=== PATIENT | female | born 1935 | race Two or more races ===

== ENCOUNTER 2018-07-26 14:47 | Outpatient (CLI) | payer OTHER ==
[~2018-07-26 14:47] MED LIST: LEVAQUIN750 MG PO; NABUMETONE500 MG PO; PERCOCET 5/3251 TAB PO
== END 2018-07-26 15:07 | disposition home or self-care (01) ==
LOC: RAD 14:47
DX: S92.902A Unspecified fracture of left foot, initial encounter for closed fracture (principal)

== ENCOUNTER 2021-04-21 08:08 | Outpatient (CLI) | payer OTHER ==
[~2021-04-21 08:08] MED LIST changes: +CARVEDILOL6.25 M1 PO; +IRBESARTAN300 MG PO; +LASIX20 MG PO; +ZOLPIDEM TARTRAT5 MG
== END 2021-04-21 08:10 | disposition home or self-care (01) ==
LOC: PPH VACUNA 08:08
PROVIDERS: ATTEND Emergency Medicine Pediatric Emergency Medicine
DX: Z23 Encounter for immunization (principal)

== ENCOUNTER 2021-11-11 08:00 | Outpatient (CLI) | payer OTHER | END 2021-11-11 08:30 | disposition home or self-care (01) | LOC: PPH VACUNA 08:00 | PROVIDERS: ATTEND Emergency Medicine Pediatric Emergency Medicine | DX: Z23 Encounter for immunization (principal) ==

== ENCOUNTER 2022-07-21 14:00 | Outpatient (CLI) | payer OTHER | END 2022-07-21 14:10 | disposition home or self-care (01) | LOC: PPH VACUNA 14:00 | PROVIDERS: ATTEND Emergency Medicine Pediatric Emergency Medicine | DX: Z23 Encounter for immunization (principal) ==

== ENCOUNTER 2023-07-21 09:57 | Inpatient (IN) | payer OTHER ==
[~2023-07-21] VITALS: Ht 154.9 cm; Wt 54.4 kg
[2023-07-21 12:36] LABS: MEAN CELL VOLUME 79.4 fL (80.00-100.00); MEAN CORPUSCULAR HGB CONC 31.8 g/dl (32.0-36.0); PLATELET COUNT 468 K/uL (150-450); RED BLOOD COUNT 2.87 M/uL (4.00-6.00); RED CELL DISTRIBUTION WIDTH 17.2 % (11.5-14.5)
[2023-07-21 12:38] LABS: HEMATOCRIT 22.8 % (36.0-45.00); MEAN CORPUSCULAR HEMOGLOBIN 25.4 pg (27.00-32.0)
[2023-07-21 12:39] LABS: HEMOGLOBIN 7.3 g/dL (12.0-15.00)
[2023-07-21 12:48] LABS: CALCIUM 8.8 mg/dL (8.5-10.1); CREATININE SERUM 0.66 mg/dL (0.55-1.02); GFR 84.32; POTASSIUM 4.56 mEq/L (3.5-5.1)
[2023-07-21 13:44] LABS: INR 1.07; PROTHROMBIN TIME 11.2 SECONDS (9.0-11.5)
[2023-07-21 14:31] LABS: PARTIAL THROMBOPLASTIN TIME < 20.0 SECONDS (22.0-34.0)
[2023-07-22 19:57] LABS: HEMATOCRIT 31.4 % (36.0-45.00); MEAN CELL VOLUME 81.9 fL (80.00-100.00); MEAN CORPUSCULAR HEMOGLOBIN 27.1 pg (27.00-32.0); MEAN CORPUSCULAR HGB CONC 33.1 g/dl (32.0-36.0); RED BLOOD COUNT 3.83 M/uL (4.00-6.00); RED CELL DISTRIBUTION WIDTH 17.1 % (11.5-14.5)
[2023-07-22 20:23] LABS: HEMOGLOBIN 10.4 g/dL (12.0-15.00); PLATELET COUNT 421 K/uL (150-450)
[2023-07-22 22:20] LABS: ALBUMIN 2.3 gm/dL (3.4-5.0); BILIRUBIN TOTAL 1.52 mg/dL (0.3-1.2); BILIRUBIN,CONJUGATED 0.63 mg/dL (0.0-0.2); BILIRUBIN,UNCONJUGATED 0.89 mg/dL (0.0-0.6); CHOL HDL RATIO 6.1 (0-5.0); TOTAL PROTEIN 6.2 gm/dL (6.4-8.2); TSH 3.57 uIU/mL (0.358-3.74)
[2023-07-22 22:29] LABS: CALCIUM 8.2 mg/dL (8.5-10.1); CHOL HDL RATIO 6.4 (0-5.0); CREATININE SERUM 0.55 mg/dL (0.55-1.02); GFR 104.07; POTASSIUM 4.45 mEq/L (3.5-5.1)
[2023-07-23 07:20] LABS: PH,URINE 6.5 (5.0-8.0); URINE APPEARANCE Clear; URINE BILIRRUBIN Negative (NEGATIVE); URINE BLOOD NHT; URINE COLOR Yellow; URINE GLUCOSE Negative (NEGATIVE); URINE LEUKOCYTE Moderate; URINE NITRATE Negative; URINE PROTEIN Negative (NEGATIVE)
[2023-07-23 07:23] LABS: URINE BACTERIA 85.6 uL (0.0-1933); URINE EPITHELIAL CELLS 14.9 uL (0.0-38.8); URINE RBC 24.4 uL (0.0-20.8); URINE WBC 297.5 uL (0.0-23.2)
[2023-07-23 14:53] LABS: CORTISOL 15.14 ug/dl
[2023-07-24 12:33] LABS: ob POSITIVE (NEGATIVE)
[2023-07-25 12:00] LABS: HEMOGLOBIN 9.1 g/dL (12.0-15.00); MEAN CELL VOLUME 83.7 fL (80.00-100.00); MEAN CORPUSCULAR HEMOGLOBIN 26.3 pg (27.00-32.0); MEAN CORPUSCULAR HGB CONC 31.5 g/dl (32.0-36.0); RED BLOOD COUNT 3.47 M/uL (4.00-6.00); RED CELL DISTRIBUTION WIDTH 17.6 % (11.5-14.5)
[2023-07-25 12:38] LABS: BILIRUBIN TOTAL 0.71 mg/dL (0.3-1.2); CALCIUM 8.2 mg/dL (8.5-10.1); CREATININE SERUM 0.47 mg/dL (0.55-1.02); GFR 124.77; PLATELET COUNT 313 K/uL (150-450); POTASSIUM 4.63 mEq/L (3.5-5.1)
[2023-07-25 12:40] LABS: ALBUMIN 2.2 gm/dL (3.4-5.0); GLOBULINA 3.8 G/DL (2.4-3.5)
[2023-07-26] MEDS ORDERED: CLONAZEPAM0.5 MG PO (08:21)
[2023-07-26] MEDS ORDERED: DIPHENHYDR50 MG/1 M1 IV (08:21)
[2023-07-26] MEDS ORDERED: CARVEDILOL3.125 MG PO (08:21)
[2023-07-26] MEDS ORDERED: LASIX20 MG PO (08:22)
[2023-07-26] MEDS ORDERED: Neurin-Sl Tablet Sl SL (08:23)
[2023-07-26] MEDS ORDERED: ZOLPIDEM TARTRAT5 MG PO (08:23)
[2023-07-26] MEDS ORDERED: AMOX-CLAV 875-1 EAC1 PO (08:24)
[2023-07-26 14:33] LABS: ABG PH 7.444 (7.35-7.45); ABG PO2 81.5 mmHg (80-100); ABG pCO2 34.6 mmHg (35-45); BASE EXCESS -0.3 mmol/l; BICARBONATE 23.2 mmol/l (23-25); SaO2 96.4 %; Tco2 24.3 mmol/l
[2023-07-26 14:34] LABS: allen test SATISFACTORY; o2 21 %; puncture site RADIAL RIGHT
[2023-07-26 23:33] LABS: ERYTHROCYTE SEDIMENTATION RATE 126 mm/hr
[2023-07-26 23:40] LABS: HEMATOCRIT 24.3 % (36.0-45.00); MEAN CELL VOLUME 83.6 fL (80.00-100.00); MEAN CORPUSCULAR HGB CONC 32.1 g/dl (32.0-36.0); PLATELET COUNT 259 K/uL (150-450); RED BLOOD COUNT 2.91 M/uL (4.00-6.00); RED CELL DISTRIBUTION WIDTH 18.4 % (11.5-14.5)
[2023-07-26 23:42] LABS: MEAN CORPUSCULAR HEMOGLOBIN 26.8 pg (27.00-32.0)
[2023-07-26 23:47] LABS: HEMOGLOBIN 7.8 g/dL (12.0-15.00)
[2023-07-27 00:09] LABS: ALBUMIN 1.8 gm/dL (3.4-5.0); BILIRUBIN TOTAL 0.37 mg/dL (0.3-1.2); CALCIUM 7.7 mg/dL (8.5-10.1); CREATININE SERUM 0.43 mg/dL (0.55-1.02); GFR 138.26; GLOBULINA 3.5 G/DL (2.4-3.5); POTASSIUM 4.4 mEq/L (3.5-5.1); TOTAL PROTEIN 5.3 gm/dL (6.4-8.2)
[2023-07-27 00:10] LABS: C-REACTIVE PROTEIN 7.18 MG/DL (0.00-0.29); FERRITIN 865.4 NG/ML (8-252)
[2023-07-29 23:48] LABS: HEMOGLOBIN 11.7 g/dL (12.0-15.00); MEAN CELL VOLUME 84.2 fL (80.00-100.00); MEAN CORPUSCULAR HEMOGLOBIN 27.5 pg (27.00-32.0); MEAN CORPUSCULAR HGB CONC 32.6 g/dl (32.0-36.0); PLATELET COUNT 139 K/uL (150-450); RED BLOOD COUNT 4.27 M/uL (4.00-6.00); RED CELL DISTRIBUTION WIDTH 18.2 % (11.5-14.5)
[2023-07-30 07:08] LABS: HEMATOCRIT 31.1 % (36.0-45.00); HEMOGLOBIN 10.4 g/dL (12.0-15.00); MEAN CELL VOLUME 83.6 fL (80.00-100.00); MEAN CORPUSCULAR HGB CONC 33.5 g/dl (32.0-36.0); PLATELET COUNT 262 K/uL (150-450); RED BLOOD COUNT 3.72 M/uL (4.00-6.00); RED CELL DISTRIBUTION WIDTH 17.8 % (11.5-14.5)
[2023-07-30 07:24] LABS: ALBUMIN 1.7 gm/dL (3.4-5.0); BILIRUBIN TOTAL 0.65 mg/dL (0.3-1.2); BILIRUBIN,CONJUGATED 0.36 mg/dL (0.0-0.2); BILIRUBIN,UNCONJUGATED 0.29 mg/dL (0.0-0.6); CALCIUM 7.6 mg/dL (8.5-10.1); CHOL HDL RATIO 5.8 (0-5.0); GFR 226.83; GLOBULINA 3.5 G/DL (2.4-3.5); MAGNESIUM 1.8 mg/dL (1.8-2.4); POTASSIUM 4.32 mEq/L (3.5-5.1); TOTAL PROTEIN 5.2 gm/dL (6.4-8.2)
[2023-07-30 07:41] LABS: CREATININE SERUM 0.28 mg/dL (0.55-1.02)
[2023-07-30 13:29] LABS: UREA CLEARANCE 44.6 ML/MIN
== END 2023-07-31 16:06 | disposition home or self-care (01) | DRG 378 ==
LOC: ER 09:57 → MEDI 18:50 → MEDJ 07-26 16:36
PROVIDERS: General Practice; Internal Medicine Infectious Disease; ADMIT Internal Medicine; ATTEND Internal Medicine
PROC: BW21YZZ Computerized Tomography (CT Scan) of Abdomen and Pelvis using Other Contrast (ICD-10-PCS; 2023-07-21)
PROC: BB24ZZZ Computerized Tomography (CT Scan) of Bilateral Lungs (ICD-10-PCS; principal; 2023-07-22)
PROC: 4A12X4Z Monitoring of Cardiac Electrical Activity, External Approach (ICD-10-PCS; 2023-07-22)
PROC: 30233N1 Transfusion of Nonautologous Red Blood Cells into Peripheral Vein, Percutaneous Approach (ICD-10-PCS; 2023-07-22)
PROC: 4A12X4Z Monitoring of Cardiac Electrical Activity, External Approach (ICD-10-PCS; 2023-07-28)
DX: K92.1 Melena (principal); C18.7 Malignant neoplasm of sigmoid colon; N39.0 Urinary tract infection, site not specified; D63.0 Anemia in neoplastic disease; I11.9 Hypertensive heart disease without heart failure; Z95.0 Presence of cardiac pacemaker